=== PATIENT | female | born 1980 | race Hispanic/Latino ===

== ENCOUNTER 2016-12-04 04:53 | Emergency (ER) | payer OTHER ==
[~2016-12-04 04:53] MED LIST: ABILIFY 15MG15 MG PO; AMOXIL500 MG PO; BENADRYL25 MG PO; CIPRODEX OTIC7.5 ML OT; CLONAZEPAM1 MG PO; CLONIDINE HCL0.2 M1 PO; ESCITALOPRAM10 MG PO; IMIPRAMINE HCL25 M1 PO; IMIPRAMINE HYDR50 MG PO; IMIPRAMINE50 MG PO; MEDROL4 M2 PO; PEPCID20 M1 PO; ROBITUSSIN W/CO10 ML PO
--- NOTE | 2016-12-04 04:55 | ED NECK/BACK PAIN COMPLAINT ---
History of Present Illness General Chief Complaint: Low Back Pain/Injury Stated Complaint: BACK PAIN Source: patient, EMS Exam Limitations: no limitations Vital Signs & Intake/Output Vital Signs & Intake/Output Vital Signs Date Time Temp Pulse Resp B/P Pulse O2 O2 Flow FiO2 Ox Delivery Rate 12/04 0457 97.0 86 18 109/73 97 Allergies Coded Allergies: NO KNOWN ALLERGIES (06/18/16) Reconcile Medications Ciprofloxacin HCl/Dexameth (Ciprodex Otic Suspension) 0.3 %-0.1 % DROPS.SUSP 4 GTT OT BID OTITIS EXTERNA USE FOR 7 DAYS Clonidine HCl 0.2 MG TABLET 1 TAB PO QPM ANXIETY (Reported) Cyclobenzaprine HCl 10 MG TABLET 1 TAB PO BID PRN SPASMA Ibuprofen 800 MG TABLET 1 TAB PO TID PRN PAIN Imipramine HCl 25 MG TABLET 3 TAB PO DAILY MENTAL HEALTH (Reported) Methylprednisolone. (Medrol) 4 MG TAB.DS.PK 1 DP PO AD LOW BACK PAIN 6 on day 1 then reduce by one tablet daily until gone Tramadol HCl 50 MG TABLET 1 TAB PO BIDP PRN BREAKTHROUGH PAIN Ziprasidone HCl 20 MG CAPSULE 1 CAP PO BID ANXIETY (Reported) Triage Nurses Notes Reviewed? yes Onset: Abrupt Duration: day(s): (1) Timing: multiple episodes today Location: lumbar spine HPI: 36-year-old female arrives by ambulance for chief complaint of low back pain radiating to the right side. She states that earlier in the day yesterday she was helping her brother move some sofas. No pain at that time. Later on in the evening she bent down to mixing picker tender an umbrella and felt a sudden onset of pain. She did not take anything for the pain and went to sleep. Around 3:30 this morning when she woke up to try to use the bathroom she had severe pain. No numbness and tingling. No difficulty with urine or stool. Pain is worse with movement. She called her mother and EMS was called. No history of similar symptoms in the past. Past History Medical History Any Pertinent Medical History? 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 No Review of Systems Review of Systems Constitutional: Denies: chills, fever. Eyes: Reports: no symptoms. Ears, Nose, Throat, Mouth: Reports: no symptoms. Respiratory: Denies: cough. Cardiovascular: Denies: chest pain. Gastrointestinal/Abdominal: Denies: abdominal pain. Musculoskeletal: Reports: back pain, muscle pain, muscle stiffness. Skin: Reports: no symptoms. Neurological/Psychological: Reports: anxiety. Denies: numbness, tingling. All Other Systems: Reviewed and Negative Physical Exam Physical Exam General Appearance: well developed/nourished, alert, awake, mild distress Head: atraumatic Eyes: Bilateral: PERRL, EOMI. Ears, Nose, Throat, Mouth: hearing grossly normal Neck: normal inspection, supple, full range of motion Respiratory: normal breath sounds Cardiovascular: regular rate/rhythm Peripheral Pulses: 2+ radial (R), 2+ radial (L) Gastrointestinal: soft, non-tender Back: normal inspection, tender right paralumbar spinal muscles Extremities: normal range of motion Straight Leg Raising: Right: Pain at ____ degrees (10). Neurologic/Psych: awake, alert, oriented x 3, normal mood/affect Skin: intact, normal color, warm/dry Progress Differential Diagnosis: myofascial strain, sciatica Plan of Care: Current Medications Sig/Shon Start time Last Medication Dose Stop Time Status Admin Ketorolac 60 MG ONCE ONE 12/04 0515 UNVr Tromethamine 12/04 0516 (Toradol) 6 AM FEELING MUCH BETTER. AMBULATORY OUT OF THE ED. RX SENT TO PHARMACY. (AMMON NORRIS,GAEL) Departure Departure Time of Disposition: 0600 Disposition: HOME OR SELF CARE Condition: Stable Clinical Impression Primary Impression: Acute low back pain Referrals: UNKNOWN (PCP/Family) Additional Instructions: TAKE THE IBUPROFEN, CYCLOBENZAPRINE AND MEDROL DOSE PACK DIRECTED. TAKE TRAMADOL FOR BREAKTHROUGH PAIN. FOLLOW UP WITH YOUR DOCTOR IN THE OFFICE. RETURN IF WORSE. Departure Forms: Customer Survey General Discharge Information Prescriptions: Current Visit Scripts Cyclobenzaprine HCl 1 TAB PO BID PRN SPASMA #20 TAB Ibuprofen 1 TAB PO TID PRN PAIN #20 TAB Methylprednisolone. (Medrol) 1 DP PO AD #1 DP 6 on day 1 then reduce by one tablet daily until gone Tramadol HCl 1 TAB PO BIDP PRN BREAKTHROUGH PAIN #10 TAB
[2016-12-04 04:57] VITALS: BP 109/73
[2016-12-04] MEDS ORDERED: ZIPRASIDONE HCL20 M1 PO (04:57)
[2016-12-04] MEDS ORDERED: MEDROL4 M2 PO (05:54)
[2016-12-04] MEDS ORDERED: CYCLOBENZAPRINE10 M1 PO (05:54)
[2016-12-04] MEDS ORDERED: IBUPROFEN800 M1 PO (05:54)
[2016-12-04] MEDS ORDERED: TRAMADOL HCL50 M1 PO (05:54)
[2016-12-10] MEDS ORDERED: BACLOFEN10 M1 PO (08:55)
== END 2016-12-04 06:05 ==
LOC: ERH 04:53
DX: M54.5 Low back pain (principal); R52 Pain, unspecified
CPT/HCPCS: 96372; J1100; J1885; J3360

== ENCOUNTER 2016-12-08 18:59 | Emergency (ER) | payer OTHER ==
[~2016-12-08] VITALS: Ht 170.2 cm; Wt 100.7 kg
[~2016-12-08 18:59] MED LIST changes: +CYCLOBENZAPRINE10 M1 PO; +IBUPROFEN800 M1 PO; +TRAMADOL HCL50 M1 PO; +ZIPRASIDONE HCL20 M1 PO
[2016-12-08 19:03] VITALS: BP 126/79
[2016-12-08] MEDS ORDERED: CLONAZEPAM0.5 M2 PO (19:24)
--- NOTE | 2016-12-08 19:38 | ED NECK/BACK PAIN COMPLAINT ---
History of Present Illness General Chief Complaint: Low Back Pain/Injury Stated Complaint: SCIATICA PAIN Source: patient Exam Limitations: no limitations Vital Signs & Intake/Output Vital Signs & Intake/Output Vital Signs Date Time Temp Pulse Resp B/P Pulse O2 O2 Flow FiO2 Ox Delivery Rate 12/08 1903 97.4 94 16 126/79 100 Room Air Allergies Coded Allergies: NO KNOWN ALLERGIES (06/18/16) Reconcile Medications Clonazepam 0.5 MG TABLET 1 TAB PO QAM PRN ANXIETY (Reported) Clonidine HCl 0.2 MG TABLET 1 TAB PO QPM ANXIETY (Reported) Cyclobenzaprine HCl 10 MG TABLET 1 TAB PO BID PRN SPASMA Ibuprofen 800 MG TABLET 1 TAB PO TID PRN PAIN Lidocaine (Lidoderm) 5 % ADH..PATCH 1 PAT TOP DAILY back pain may wear up to 12 hours Methylprednisolone. (Medrol) 4 MG TAB.DS.PK 1 DP PO AD LOW BACK PAIN 6 on day 1 then reduce by one tablet daily until gone Tramadol HCl 50 MG TABLET 1 TAB PO BIDP PRN BREAKTHROUGH PAIN Ziprasidone HCl 20 MG CAPSULE 1 CAP PO BID ANXIETY (Reported) Triage Note: PT TO ED FOR WORSENING SCIATICA PAIN, SEEN HERE RECENTLY FOR SAME. REPORTING PAIN IS NOW "SHOOTING DOWN MY BUTT". PT TEXTING THROUGHOUT TRIAGE. Triage Nurses Notes Reviewed? yes Onset: Abrupt Duration: day(s):, waxing and waning Timing: recent history Quality/Severity: moderate Location: lumbar spine Radiation: none Context: lifting, turning/bending Method of Injury: twisted Loss of Consciousness: no loss of consciousness Modifying Factors: movement Associated Symptoms: muscle spasm : No Patient currently breastfeeds: No HPI: 36 yo woman presents with bilateral lower lumbar pain x 4 days which began after moving her sofa. She notes the discomfort feels like a muscule spasm, is worse on the left lumber region, radiates into buttock, but not down leg. No focal weakness, bowel or bladder problems. She was seen 3 days ago in ED, given nsaids, flexeril, ultram with only moderate effect. Past History Travel History Traveled to [place] past 21 day No Medical History Any Pertinent Medical History? 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 No Review of Systems Review of Systems Constitutional: Reports: no symptoms. Eyes: Reports: no symptoms. Ears, Nose, Throat, Mouth: Reports: no symptoms. Respiratory: Reports: no symptoms. Cardiovascular: Reports: no symptoms. Gastrointestinal/Abdominal: Reports: no symptoms. Musculoskeletal: Reports: no symptoms. Skin: Reports: no symptoms. Neurological/Psychological: Reports: no symptoms. All Other Systems: Reviewed and Negative Physical Exam Physical Exam General Appearance: well developed/nourished, mild distress Head: atraumatic Eyes: Bilateral: PERRL, EOMI. Ears, Nose, Throat, Mouth: hearing grossly normal Neck: normal inspection, supple, full range of motion, normal alignment Respiratory: normal breath sounds Cardiovascular: regular rate/rhythm Gastrointestinal: soft, non-tender Back: normal inspection, muscle spasm, no vertebral tenderness Extremities: normal range of motion Straight Leg Raising: Right: Negative. Left: Negative. Neurologic/Psych: awake, alert, oriented x 3, normal mood/affect Skin: intact, normal color, warm/dry Comments: lower extremities with bilateral strength, light touch, strength intact. Progress Differential Diagnosis: herniated disc, myofascial strain, sciatica Plan of Care: pt with benign exam... will intensify treatment with lidocaine patch... pt to follow up with pmd for PT referral. Departure Departure Disposition: HOME OR SELF CARE Condition: Stable Clinical Impression Primary Impression: Back pain Referrals: UNKNOWN (PCP/Family) Departure Forms: Customer Survey General Discharge Information Prescriptions: Current Visit Scripts Lidocaine (Lidoderm) 1 PAT TOP DAILY #30 PAT Ref 1 may wear up to 12 hours Cyclobenzaprine HCl 1 TAB PO BID PRN SPASMA #20 TAB Ibuprofen 1 TAB PO TID PRN PAIN #20 TAB Tramadol HCl 1 TAB PO BIDP PRN BREAKTHROUGH PAIN #10 TAB
[2016-12-08] MEDS ORDERED: TRAMADOL HCL50 M1 PO (19:57)
[2016-12-08] MEDS ORDERED: IBUPROFEN800 M1 PO (19:57)
[2016-12-08] MEDS ORDERED: CYCLOBENZAPRINE10 M1 PO (19:57)
[2016-12-08] MEDS ORDERED: LIDODERM1 EACH TOP (19:57)
[2016-12-10] MEDS ORDERED: BACLOFEN10 M1 PO (08:55)
== END 2016-12-08 20:01 ==
LOC: ERH 18:59
DX: M54.5 Low back pain (principal)

== ENCOUNTER 2017-11-25 08:18 | Emergency (ER) | payer OTHER ==
[~2017-11-25] VITALS: Ht 170.2 cm; Wt 108.9 kg
[~2017-11-25 08:18] MED LIST changes: +BACLOFEN10 M1 PO; +CLONAZEPAM0.5 M2 PO; +LIDODERM1 EACH TOP
[2017-11-25 08:28] VITALS: BP 135/85
--- NOTE | 2017-11-25 08:28 | ED INFLUENZA/URI COMPLAINT ---
History of Present Illness General Chief Complaint: Upper Respiratory Sx/Fever Stated Complaint: COUGH Source: patient, old records Exam Limitations: no limitations Vital Signs & Intake/Output Vital Signs & Intake/Output Vital Signs Date Time Temp Pulse Resp B/P B/P Pulse O2 O2 Flow FiO2 Mean Ox Delivery Rate 11/25 0916 95 Room Air 11/25 08 98.4 94 18 135/85 95 Room Air Allergies Coded Allergies: No Known Allergies (08/25/17) Reconcile Medications Azithromycin (Zithromax) 250 MG TABLET 1 DP PO AD BRONCHITIS 2 the first day followed by 1 for days 2-5 Baclofen 10 MG TABLET 1 TAB PO TIDPRN PRN muscle spasm/strain Clonazepam 0.5 MG TABLET 1 TAB PO QAM PRN ANXIETY (Reported) Clonidine HCl 0.2 MG TABLET 1 TAB PO QPM ANXIETY (Reported) Codeine Phosphate/Guaifenesi (Guaifen-Codeine 200-20 MG/10ML) 20 MG-200 MG/10 ML LIQUID 10 ML PO Q6HR PRN COUGH Ibuprofen 800 MG TABLET 1 TAB PO TID PRN PAIN Lidocaine (Lidoderm) 5 % ADH..PATCH 1 PAT TOP DAILY back pain may wear up to 12 hours Methylprednisolone. (Medrol) 4 MG TAB.DS.PK 1 DP PO AD LOW BACK PAIN 6 on day 1 then reduce by one tablet daily until gone Tramadol HCl 50 MG TABLET 1 TAB PO BIDP PRN BREAKTHROUGH PAIN Ziprasidone HCl 20 MG CAPSULE 1 CAP PO BID ANXIETY (Reported) Triage Nurses Notes Reviewed? yes Onset: Abrupt Duration: day(s): (2), constant Timing: recent history Severity: moderate Severity Numbers: 5 Prior Episodes/Possible Cause: occassional episodes No Modifying Factors: none Associated Symptoms: cough HPI: 37-year-old female active smoker presents to the ER for evaluation complaining of a productive cough for the past 2 days. She denies fever chills shortness of breath. She's been taking [id number] medications without improvement. Multiple sick contacts at home with similar symptoms. No abdominal pain nausea vomiting diarrhea chest pain shortness of breath. No modifying factors or associated symptoms otherwise (Ramez MAC,Joe) Past History Travel History Traveled to [place] past 21 day No Medical History Any Pertinent Medical History? 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 No (Joe Starr) Review of Systems Review of Systems Constitutional: Reports: see HPI. Comments Review of systems: See HPI, All other systems negative. Constitutional, no chills no fever, no malaise HEENT: no sore throat no congestion, no ear pain Cardiovascular: No chest pain , no palpitation Skin: no rashes, no change in skin Respiratory: No dyspnea, (+) cough no sputum no hemoptysis GI: No nausea no vomiting, no diarrhea, Muscle skeletal: No joint pain, no back pain Neurologic: , no headache Heme/endocrine: No bruising Immunology: No lymphadenopathy (Joe Starr) Physical Exam Physical Exam General Appearance: well developed/nourished, no apparent distress, alert, awake Ears, Nose, Throat: normal ENT inspection, moist mucous membrane, hearing grossly normal Comments: Well-developed well-nourished patient in no apparent distress. Head/Face: Atraumatic, no maxillary/frontal sinus tenderness Eyes: PERRL, EOMI, no conjunctival injection Ear:External auditory canal and Tympanic membranes clear, no erythema Nose: atraumatic.Normal inspection: No bleeding, no septal hematoma Throat: Moist mucous membranes.Pharynx normal. No pharyngeal erythema/exudate seen. No stridor/drooling or assymetry. No swelling or edema. Neck: Supple, no lymphadenopathy, FROM Back: FROM Cardiovascular: Regular rate and rhythms no murmur Respiratory: No respiratory distress. Patient speaking in full complete sentences. Breath sounds clear to auscultation bilaterally: NO W/R/R Extremities: full range of motion Neuro: awake, alert, and oriented to person, place and time. There were no obvious focal neurologic abnormalities. Skin: Warm & dry;No appreciable rash on exposed skin Psych: Mood affect normal, normal memory normal judgment. Core Measures Sepsis Present: No Sepsis Focused Exam Completed? No (Joe Starr) Progress Differential Diagnosis: influenza, otitis, pneumonia, pharyngitis, sinusitis, bronchitis Plan of Care: Orders Procedure Date/time Status RAPID VIRAL INFLUENZA A 11/25 825 Complete Microbiology 11/25 829 NASOPHARYN: Influenza Virus A & B Rapid Smear - COMP I discussed with the patient at length all of their results. I had an extensive conversation regarding need for close follow up with their primary care physician this week as well as return precautions. I answered all of their questions, they feel comfortable with the plan and follow-up care. I discussed with the patient/family the medications that they will receive. I gave them signs and symptoms that could indicate an adverse reaction. I have advised them to limit their activities until they can see how they respond to the medication. Initial ED EKG: none (Ramez MAC,Joe) Departure Departure Time of Disposition: 910 Disposition: HOME OR SELF CARE Condition: Stable Clinical Impression Primary Impression: Bronchitis Referrals: Chika Osborne APRN (PCP/Family) Additional Instructions: Guaifensin with codeine for cough- use caution as this maymake you drowsy. no driving while taking. Zpak as directed. interchange tylenol and motrin every 4-6 hours. follow up with your pmd this week. return with any concerns Departure Forms: Customer Survey General Discharge Information Prescriptions: Current Visit Scripts Codeine Phosphate/Guaifenesi (Guaifen-Codeine 200-20 MG/10ML) 10 ML PO Q6HR PRN COUGH #150 ML Azithromycin (Zithromax) 1 DP PO AD #6 TAB 2 the first day followed by 1 for days 2-5 (Joe Starr) PA/PRODUCE TEAM LEAD Co-Sign Statement Statement: ED Attending supervision documentation- [] I saw and evaluated the patient. I have also reviewed all the pertinent lab results and diagnostic results. I agree with the findings and the plan of care as documented in the PA's/PRODUCE TEAM LEAD's documentation. [X] I have reviewed the ED Record and agree with the PA's/PRODUCE TEAM LEAD's documentation. [] Additions or exceptions (if any) to the PAs/PRODUCE TEAM LEAD's note and plan are summarized below: [] (Bobo NORRIS,Jose Gonzalez)
[2017-11-25] MEDS ORDERED: ZITHROMAX250 M2 PO (09:12)
[2017-11-25] MEDS ORDERED: GUAIFEN-CODEINE10 ML PO (09:12)
== END 2017-11-25 09:17 ==
LOC: ERH 08:18
DX: J40 Bronchitis, not specified as acute or chronic (principal)
CPT/HCPCS: 87804; 87804-59